=== PATIENT | male | born 1945 | race Caucasian/White ===

== ENCOUNTER 2018-04-09 19:58 | Inpatient (IN) | payer MEDICAID ==
[~2018-04-09] VITALS: Ht 170.2 cm; Wt 68.1 kg
[2018-04-09 20:45] VITALS: BP 159/85
--- NOTE | 2018-04-09 20:53 | NUR ---
OBSTETRICIAN GYNECOLOGIST SIDE SHOW ENTERTAINER AND LAB AT BEDSIDE.
[2018-04-09 20:59] LABS: BASOPHILS # (AUTO) 0.1 /CMM (0.0-0.2); BASOPHILS % (AUTO) 0.7 % (0.0-2.0); EOSINOPHILS % (AUTO) 1.7 % (0.0-6.0); HEMATOCRIT 45 % (39-51); HEMOGLOBIN 15.1 g/dL (13.5-17.5); LYMPHOCYTES # (AUTO) 3.2 /CMM (0.8-4.8); LYMPHOCYTES % (AUTO) 32.3 % (20.0-44.0); MEAN CORPUSCULAR HGB CONC 34 g/dl (31.0-36.0); MEAN CORPUSCULAR VOLUME 87 fL (80-96); MONOCYTES # (AUTO) 0.6 /CMM (0.1-1.30); NEUTROPHILS # (AUTO) 5.7 /CMM (1.8-8.9); NEUTROPHILS % (AUTO) 59.3 % (43.0-81.0); PLATELET COUNT (AUTO) 147 /CMM (150-450); RDW COEFFICIENT OF VARIATION 13.2 (11.5-15.0); RED BLOOD CELL COUNT(AUTO) 5.17 MIL/uL (4.5-6.0); WHITE BLOOD COUNT (AUTO) 9.8 K/uL (4.3-11.0)
--- NOTE | 2018-04-09 21:01 | NUR ---
ELIGIBILITY TECHNICIAN 72/M BIB AMBULANCE PER PRIMARY MD FOR EVAL OF GROWTH ON RIGHT ARM; GROWTH IS PINK/RED PROTRUING FROM LOWER ARM COVERED W/DRESSING. PT DENIES PAIN. NO SOB NOTED, ON ROOM AIR. NSR ON MONITOR. SBP 160. PT HAS RIGHT SIDED WEAKNESS FROM PREVIOUS CVA.
[2018-04-09 21:05] LABS: CALCIUM, SERUM 9.1 mg/dL (8.5-10.1); CARBON DIOXIDE 34 mmol/L (21-32); CHLORIDE 105 mmol/L (98-107); CREATININE 0.8 mg/dL (0.6-1.3); GLUCOSE 100 mg/dL (74-106); POTASSIUM 3.8 mmol/L (3.5-5.1); SODIUM SERUM 142 mmol/L (136-145); UREA NITROGEN, BLOOD 15 mg/dL (7-18)
--- NOTE | 2018-04-09 21:19 | NUR ---
DR MORFIN SPEAKING WITH DEGKEELYSE STEAMSHIP AGENT AND ACCEPTING PATIENT.
--- NOTE | 2018-04-09 21:47 | NUR ---
CALLED NURSING SUP REQUESTED MED SURG BED FOR THIS PATIENT.
--- NOTE | 2018-04-09 22:00 | NUR ---
COMPUTER TRAINING SPECIALIST PT USED URINAL; 100 ML CLEAR YELLOW URINE.
--- NOTE | 2018-04-09 22:25 | NUR ---
PLANNER/SCHEDULER INSERTED LFA 22 G. PT TOLERATED WELL.
--- NOTE | 2018-04-09 22:25 | NUR ---
CRITICAL CARE NURSE PRACTITIONER REPORT GIVEN TO RVI.
[2018-04-09] MEDS ORDERED: Z GUARD REMEDY 2 OZ OINT TP PRN (22:30)
[2018-04-09] MEDS ORDERED: ACETAMINOPHEN 325 MG TABLET PO PRN (22:30)
[2018-04-09] MEDS ORDERED: ONDANSETRON HCL/PF 4 MG/2 ML VIAL IVP PRN (22:30)
[2018-04-09] MEDS ORDERED: ZOLPIDEM TARTRATE 5 MG TABLET PO PRN (22:30)
[2018-04-09] MEDS ORDERED: MAG HYDROX/AL HYDROX/SIMETH 30 ML UDC PO PRN (22:30)
[2018-04-09] MEDS ORDERED: MAGNESIUM HYDROXIDE 30 ML UDC PO PRN (22:30)
--- NOTE | 2018-04-09 22:40 | NUR ---
RN NOTES RECEIVED PATIENT FROM ER FOR DX RIGHT FOREARM MASS. PATIENT AO TO PERSON; FORGETFUL OF DATE AND PLACE. PATIENT AWARE WHY HE IS ADMITTED. NO ACUTE DISTRESS NOTED. DENIES ANY PAIN AT THIS TIME. IV SITE PATENT, INTACT; FLUSHED. SKIN ASSESSMENT DONE. ON LOW BED WITH BILATERAL UPPER SIDE RAILS UP. CALL EWING WITHIN EASY REACH. WILL CONTINUE TO MONITOR.
[2018-04-09 22:42] VITALS: BP 159/85
[2018-04-09] MEDS: IV D5/0.45 NACL 1,000 ML IV PRN (23:29)
[2018-04-10] MEDS ORDERED: CHOL100044 PO (02:39)
[2018-04-10] MEDS ORDERED: ASPI-1152 PO (02:39)
[2018-04-10] MEDS ORDERED: ATEN50TA PO (02:39)
[2018-04-10] MEDS ORDERED: ATOR10TA PO (02:39)
[2018-04-10] MEDS ORDERED: DONE10TA11 PO (02:39)
--- NOTE | 2018-04-10 06:15 | NUR ---
RN NOTES PATIENT IN BED ASLEEP, EASILY AROUSABLE. RESPIRATIONS EVEN. NO SIGNS OF PAIN NOTED. IVF INFUSING ORDERED. NEEDS ATTENDED. SAFETY PRECAUTIONS AND COMFORT MEASURES IN PLACE. WILL GIVE REPORT TO DAY SHIFT FOR CONTINUITY OF CARE.
[2018-04-10 06:32] LABS: BASOPHILS % (AUTO) 0.3 % (0.0-2.0); EOSINOPHILS % (AUTO) 1.3 % (0.0-6.0); HEMATOCRIT 43 % (39-51); HEMOGLOBIN 14.4 g/dL (13.5-17.5); LYMPHOCYTES # (AUTO) 1.9 /CMM (0.8-4.8); LYMPHOCYTES % (AUTO) 27.9 % (20.0-44.0); MEAN CORPUSCULAR HGB CONC 33 g/dl (31.0-36.0); MEAN CORPUSCULAR VOLUME 89 fL (80-96); MONOCYTES # (AUTO) 0.5 /CMM (0.1-1.30); MONOCYTES % (AUTO) 6.6 % (2.0-12.0); NEUTROPHILS # (AUTO) 4.4 /CMM (1.8-8.9); NEUTROPHILS % (AUTO) 63.9 % (43.0-81.0); PLATELET COUNT (AUTO) 102 /CMM (150-450); RDW COEFFICIENT OF VARIATION 14.1 (11.5-15.0); RED BLOOD CELL COUNT(AUTO) 4.84 MIL/uL (4.5-6.0)
[2018-04-10 06:56] LABS: CHOLESTEROL 160 mg/dL (<200); HDL CHOLESTEROL 60 mg/dL (40-60); LDL 98 mg/dL (0-99); TRIGLYCERIDES 64 mg/dL (30-150)
[2018-04-10 07:05] LABS: ALANINE AMINOTRANSFERASE 23 U/L (12-78); ALBUMIN 3.8 g/dL (3.4-5.0); ALKALINE PHOSPHATASE 87 U/L (46-116); ASPARTATE AMINOTRANSFERASE 19 U/L (15-37); BILIRUBIN,TOTAL 0.9 mg/dL (0.2-1.0); CALCIUM, SERUM 8.6 mg/dL (8.5-10.1); CARBON DIOXIDE 32 mmol/L (21-32); CHLORIDE 105 mmol/L (98-107); CREATININE 0.6 mg/dL (0.6-1.3); GLUCOSE 103 mg/dL (74-106); MAGNESIUM 2.1 mg/dL (1.8-2.4); PHOSPHORUS 3.6 mg/dL (2.5-4.9); POTASSIUM 3.3 mmol/L (3.5-5.1); SODIUM SERUM 141 mmol/L (136-145); TOTAL PROTEIN, SERUM 6.6 g/dL (6.4-8.2); UREA NITROGEN, BLOOD 12 mg/dL (7-18)
--- NOTE | 2018-04-10 07:20 | NUR ---
MS RN INITIAL NOTES Report received at bedside. Patient received in bed, awake, and verbally responsive. Alert and oriented x1, English speaking. Complaints of pain on right arm. No SOB/labored breathing noted. Not in any type of distress. IV on left forearm noted with fluids running. Safety measures in place. Will continue to monitor and assess patient.
[2018-04-10 08:00] VITALS: BP 138/72
--- NOTE | 2018-04-10 09:07 | NUR ---
MS RN - V/S RECHECK BP 150/73 P 62 RR 18 SpO2 97% in room air
[2018-04-10 09:11] VITALS: BP 150/73
[2018-04-10] MEDS ORDERED: LIDOCAINE 1%-EPI 1:100,000 20 ML VIAL TP ONE (10:00)
[2018-04-10] MEDS: POTASSIUM CL. PREMIX PERIPHER. 50 ML IV SCH ×2 (10:39→11:39)
--- NOTE | 2018-04-10 14:40 | NUR ---
MS RN - PROCEDURE NOTES Biopsy of Right forearm mass done by Dr. Armando Ochoa and Shira Ghosh NP. Order to apply zeroform on site with gauze and cover with Kerlix.
[2018-04-10 16:00] VITALS: BP 146/70
[2018-04-10] MEDS: IV D5/0.45 NACL 1,000 ML IV PRN (16:20)
--- NOTE | 2018-04-10 19:40 | NUR ---
MS/RN NOTES RECEIVED PT. LYING IN BED, RESTING. PT. IS EASILY AROUSABLE TO NAME. AWAKE, ALERT AND ORIENTED X1-2. BREATHING EVEN AND UNLABORED ON ROOM AIR. NO SOB, RESPIRATORY DISTRESS OR COMPLAINTS OF PAIN NOTED AT THIS TIME. PT. WITH LEFT FOREARM 20 GAUGE PERIPHERAL IV PRESENT, PATENT AND INTACT ADMINISTERING TO PT. D5 1/2 NS @ 75 ML/HR. PT. WITH RIGHT FOREARM DRESSING PRESENT, CLEAN, DRY AND INTACT. BED LOCKED AND IN LOWEST POSITION, SIDE RAILS UP X2, BED ALARM ON, CALL LIGHT WITHIN REACH, WILL CONTINUE TO MONITOR.
[2018-04-10 20:00] VITALS: BP 139/69
--- NOTE | 2018-04-10 20:06 | NUR ---
MS RN CLOSING NOTES Report given. Patient remained in bed, awake and verbally responsive. Alert and oriented x2, Fijian speaking. Denies any pain. On room air with no SOB/labored breathing noted. Not in any type of distress. Afebrile. All needs anticipated and met. Kept patient clean and dry. Right forearm dressing dry/clean and intact.Turned and repositioned every two hours with offloading bony prominences. Bed in locked and lowest position with bed alarm and call light within reach.
[2018-04-10] MEDS: ATORVASTATIN 10 MG TABLET PO SCH (22:05)
[2018-04-10] MEDS: DONEPEZIL 5 MG TABLET PO SCH (22:05)
--- NOTE | 2018-04-11 | NUR ---
MS/RN NOTES PT. REFUSING TURNING AND REPOSITIONING STATING HE IS OK AND WANTS TO SLEEP. EDUCATED PT. ON IMPORTANCE OF TURNING AND REPOSITIONING Q2H AND NEEDED. PT. CONTINUES TO REFUSE. WILL CONTINUE TO MONITOR.
[2018-04-11] MEDS: IV D5/0.45 NACL 1,000 ML IV PRN ×2 (05:58→23:30)
--- NOTE | 2018-04-11 06:17 | NUR ---
MS/RN NOTES PT. IS LYING IN BED RESTING. BREATHING EVEN AND UNLABORED ON ROOM AIR. NO SOB, RESPIRATORY DISTRESS OR COMPLAINTS OF PAIN NOTED AT THIS TIME AND THROUGHOUT SHIFT. PT. WITH LEFT FOREARM 20 GAUGE PERIPHERAL IV PRESENT, PATENT AND INTACT ADMINISTERING TO PT. D5 1/2 NS @ 75 ML/HR. PT. WITH RIGHT FOREARM DRESSING PRESENT, CLEAN, DRY AND INTACT. ALL PT. NEEDS MET. BED LOCKED AND IN LOWEST POSITION, SIDE RAILS UP X2, BED ALARM ON, CALL LIGHT WITHIN REACH, WILL ENDORSE TO DAYSHIFT NURSE FOR CONTINUITY OF CARE.
[2018-04-11 07:29] LABS: CARBON DIOXIDE 28 mmol/L (21-32); CHLORIDE 108 mmol/L (98-107); CREATININE 0.6 mg/dL (0.6-1.3); GLUCOSE 114 mg/dL (74-106); POTASSIUM 4.1 mmol/L (3.5-5.1); SODIUM SERUM 144 mmol/L (136-145); UREA NITROGEN, BLOOD 10 mg/dL (7-18)
[2018-04-11 08:00] VITALS: BP 161/73
--- NOTE | 2018-04-11 08:00 | NUR ---
m/s warehouse operator: initial assessment receive pt in bed awake, alert and oriented x 1-2 with confusion and disorientation to time, place, and situation. speech mumbles at times, but able to make simple needs known; yoruba speaking only. reality orientation provided prn. will continue to monitor.
[2018-04-11] MEDS: ASPIRIN EC 81 MG TABLET.DR PO SCH (08:33)
[2018-04-11] MEDS: ATENOLOL 50 MG TABLET PO SCH (08:34)
--- NOTE | 2018-04-11 12:00 | NUR ---
m/s heidi: md visit seen and examined by hayden hussein ([facility]) at this time.
--- NOTE | 2018-04-11 14:00 | NUR ---
m/s side stitcher: plastic surgeon f/u seen by pratik (romario) and plan to do surgery to remove mass on right forearm on . cn aware. no new orders at this time. will monitor.
[2018-04-11 16:00] VITALS: BP 155/81
--- NOTE | 2018-04-11 16:00 | NUR ---
m/s pet store merchandiser: notes tx supplies at bedside. pt refused tx on right forearm wound when offered. reality orientation provided prn. instructed to call for assistance. will continue to monitor.
--- NOTE | 2018-04-11 19:10 | NUR ---
m/s flume tender: notes bedside report given to nicole (sangeetha) for continuity of care.
--- NOTE | 2018-04-11 19:15 | NUR ---
RN OPENING NOTES PT AWAKE DN RESTING IN BED. PT CONFUSED. PRIMARILY [place]EL[place] SPEAKER. NO APPARENT S/S OF PAIN DISTRESS OR SOB AT THIS TIME. PT HAS A LEFT FOREARM #20 IV RUNNING D5 1/2NS @75 ML/HR. PT TOLERATING FLUIDS WELL. PT HAS A RIGHT FOREARM DRESSING PRESENT, CLEAN, DRY AND INTACT. SAFETY PRECAUTIONS IN PLACE, BED IN LOWEST LOCKED POSITION, X2 SIDE RAILS UP, AND CALL LIGHT WITHIN REACH. WILL CONTINUE TO MONITOR.
[2018-04-11 20:15] VITALS: BP 127/62
[2018-04-11] MEDS: ATORVASTATIN 10 MG TABLET PO SCH (21:45)
[2018-04-11] MEDS: DONEPEZIL 5 MG TABLET PO SCH (21:47)
--- NOTE | 2018-04-12 06:36 | NUR ---
RN CLOSING NOTES PT AWAKE AND RESTING IN BED. PT CONFUSED. PRIMARILY AMHARIC SPEAKER. NO APPARENT S/S OF PAIN DISTRESS OR SOB OVERNIGHT. PT HAS A LEFT FOREARM #20 IV RUNNING D5 1/2NS @75 ML/HR. PT TOLERATING FLUIDS WELL. PT HAS A RIGHT FOREARM DRESSING PRESENT, CLEAN, DRY AND INTACT. SAFETY PRECAUTIONS IN PLACE, BED IN LOWEST LOCKED POSITION, X2 SIDE RAILS UP, AND CALL LIGHT WITHIN REACH. WILL ENDORSE TO DAY SHIFT NURSE FOR CONTINUITY OF CARE.
[2018-04-12 08:00] VITALS: BP 136/63
[2018-04-12] MEDS: ASPIRIN EC 81 MG TABLET.DR PO SCH (09:15)
[2018-04-12] MEDS: ATENOLOL 50 MG TABLET PO SCH (09:16)
[2018-04-12 16:00] VITALS: BP 130/60
--- NOTE | 2018-04-12 19:00 | NUR ---
MS RN OPENING NOTE RECEIVE PATIENT AWAKE IN BED, TOLERATING ROOM AIR 98%. NO SOB OR DISTRESS NOTED, CALL LIGHT WITHIN REACH. SAFETY MEASURES IMPLEMENTED. WILL CONTINUE TO MONITOR THROUGHOUT SHIFT.
[2018-04-12 20:00] VITALS: BP 135/70
[2018-04-12] MEDS: DONEPEZIL 5 MG TABLET PO SCH (21:01)
[2018-04-12] MEDS: ATORVASTATIN 10 MG TABLET PO SCH (21:01)
[2018-04-12] MEDS: IV D5/0.45 NACL 1,000 ML IV PRN ×2 (21:02→21:21)
--- NOTE | 2018-04-12 23:23 | NUR ---
MS RN NOTES SPOKE TO (JOHNNIE) WITH 1 RN WITNESS TRANSLATED CANADIAN EXPLAINED SURGERY PROCEDURES TO BE DONE TOMORROW. AGREED AND CONSENTED THE PROCEDURE.
--- NOTE | 2018-04-13 06:28 | NUR ---
MS RN CLOSING NOTES ASLEEP AND EASILY AWAKEN, STABLE, NOT IN DISTRESS. TOLERATING ROOM AIR 98%, RESPIRATION EVEN AND UNLABORED. KEPT CLEAN AND DRY AND COMFORTABLE, ALL NURSING CARE RENDERED. NEEDS ATTENDED AND ANTICIPATED. GOOD SKIN CARE PROVIDED. NO COMPLAIN OF PAIN AT THIS TIME. OFFLOAD HEELS AND ELBOWS. ON LOW BED AT ALL TIMES TO ENSURE SAFETY. SAFE HAZARD FREE ENVIRONMENT PROVIDED. CALL LIGHT WITHIN EASY TO REACH. WILL ENDORSE NEXT SHIFT CONTINUITY OF CARE.
[2018-04-13 06:58] LABS: CALCIUM, SERUM 8.9 mg/dL (8.5-10.1); CARBON DIOXIDE 29 mmol/L (21-32); CHLORIDE 106 mmol/L (98-107); CREATININE 0.8 mg/dL (0.6-1.3); GLUCOSE 103 mg/dL (74-106); POTASSIUM 3.9 mmol/L (3.5-5.1); SODIUM SERUM 142 mmol/L (136-145); UREA NITROGEN, BLOOD 13 mg/dL (7-18)
[2018-04-13 07:14] LABS: BASOPHILS % (AUTO) 0.4 % (0.0-2.0); EOSINOPHILS % (AUTO) 1.7 % (0.0-6.0); HEMATOCRIT 44 % (39-51); HEMOGLOBIN 14.8 g/dL (13.5-17.5); LYMPHOCYTES # (AUTO) 2.5 /CMM (0.8-4.8); LYMPHOCYTES % (AUTO) 27.1 % (20.0-44.0); MEAN CORPUSCULAR HGB CONC 34 g/dl (31.0-36.0); MEAN CORPUSCULAR VOLUME 90 fL (80-96); MONOCYTES # (AUTO) 0.4 /CMM (0.1-1.30); MONOCYTES % (AUTO) 4.9 % (2.0-12.0); NEUTROPHILS % (AUTO) 65.9 % (43.0-81.0); PLATELET COUNT (AUTO) 112 /CMM (150-450); RED BLOOD CELL COUNT(AUTO) 4.92 MIL/uL (4.5-6.0); WHITE BLOOD COUNT (AUTO) 9.1 K/uL (4.3-11.0)
--- NOTE | 2018-04-13 07:53 | NUR ---
MS RN OPENING NOTES RECEIVED PT FROM NIGHTSMIFT NURSE IN STABLE CONDITION. PT IS A/O X3. NO SOB OR ACUTE SIGNS OF DISTRESS NOTED. RESPIRATIONS EVEN AND UNLABORED. PT ON RA AND SATING WELL. HE DENIES PAIN AT THIS TIME. NPO STATUS MAINTAINED PT IS SCHEDULED FOR REMOVAL OF THE RIGHT FA MASS AT AROUND 1100. PT NOTIFIED OF TIME OF PROCEDURE AND EDUCATED ON THE IMPORTANCE OF REMAINING NPO. HE VERBALIZED FULL UNDERSTANDING. IV TO LEFT FA NOTED TO BE PATENT AND INTACT. NO REDNESS OR SIGNS OF INFILTRATION NOTED. PT TOLERATING IV INFUSION WELL. BED IN LOW LOCKED POSITION, SIDE RAILS UP X2, CALL LIGHT WITHIN PT'S REACH. WILL CONTINUE TO MONITOR
[2018-04-13 08:18] VITALS: BP 106/73
[2018-04-13] MEDS: ATENOLOL 50 MG TABLET PO SCH (09:00)
[2018-04-13] MEDS: ASPIRIN EC 81 MG TABLET.DR PO SCH (09:00)
--- NOTE | 2018-04-13 11:30 | NUR ---
Pt taken down to OR in stable condition
[2018-04-13] MEDS ORDERED: MINERAL OIL 10 ML VIAL MC ONE (12:25)
[2018-04-13] MEDS ORDERED: BUPIVACAINE MPF 0.5% W/EPI INJ 30 ML VIAL ONE (12:25)
[2018-04-13] MEDS ORDERED: LIDOCAINE 1% INJ 50 ML MDV IJ ONE (12:25)
--- NOTE | 2018-04-13 13:56 | NUR ---
MS RN NOTES: POST OP RECEIVED PT FROM OR NURSE IN STABLE CONDITION. VSS. NO COMPLAINTS OF PAIN AT THIS TIME. SURGICAL DRESSINGS NOTED TO BE CLEAN, DRY, AND INTACT. SKIN GRAFT SITE (RIGHT UPPER THIGH) NOTED TO BE BE WRAPPED IN ASHLY BANDAGE. ORDERS NOTED FROM MD TO RESUME PREOP ORDERS. WILL RESUME DIET AND CONTINUE TO MONITOR
[2018-04-13 16:23] VITALS: BP 146/74
[2018-04-13] MEDS: IV D5/0.45 NACL 1,000 ML IV PRN (17:14)
--- NOTE | 2018-04-13 18:29 | NUR ---
MS RN CLOSING NOTES PT REMAINS STABLE. ALL NEEDS WERE MET DURING SHIFT AND ORDERS CARRIED OUT ACCORDINGLY ALL DUE MEDS GIVEN. VITALS STABLE POST PROCEDURE. SURGICAL DRESSINGS REMAIN CLEAN, DRY, AND INTACT. PT DENIES PAIN AT THIS TIME. IV REMAINS PATENT AND INTACT. PT CONTINUES TO TOLERATE IV INFUSION WELL. SAFETY MEASURES REMAIN IN PLACE. WILL ENDORSE TO NIGHTSHIFT NURSE FOR PRAVEEN
--- NOTE | 2018-04-13 19:27 | NUR ---
RN OPENING NOTES PT ASLEEP IN BED COMFORTABLY. PT IN ROOM AIR, TOLERATING WELL, NO SIGNS OF DISTRESS, NO LABORED BREATHING. IV ACCESS ON THE LEFT FOREARM 20G PATENT AND INTACT. DRESSING ON RIGHT FOREARM AND RIGHT LEG IS DRY AND INTACT, NO SIGNS OF SWELLING, NO BLEEDING. PT DOES NOT SHOW ANY SIGNS OF PAIN. SAFETY MEASURES IN PLACED, CALL LIGHT WITHIN REACH. WILL CONTINUE TO MONITOR AND ASSESS PATIENT.
[2018-04-13 19:30] VITALS: BP 114/68
[2018-04-13 20:00] VITALS: BP 114/68
[2018-04-13] MEDS: ATORVASTATIN 10 MG TABLET PO SCH (21:29)
[2018-04-13] MEDS: DONEPEZIL 5 MG TABLET PO SCH (21:29)
[2018-04-13] MEDS: HYDROCODONE/APAP 5/325MG 1 EACH TABLET PO PRN (21:29)
[2018-04-14] MEDS: HYDROCODONE/APAP 5/325MG 1 EACH TABLET PO PRN (05:31)
--- NOTE | 2018-04-14 06:54 | NUR ---
RN CLOSING NOTES PT LAYING IN BED, EASILY AROUSED. PT IN ROOM AIR, TOLERATING WELL, NO SIGNS OF DISTRESS, NO LABORED BREATHING. IV ACCESS ON THE LEFT FOREARM 20G PATENT AND INTACT. DRESSING ON RIGHT FOREARM AND RIGHT LEG IS DRY AND INTACT, NO SIGNS OF SWELLING, NO BLEEDING. PT COMPLAINED OF PAIN, GIVEN PAIN RELIEF MED, PT STATES IT'S EFFECTIVE. SAFETY MEASURES IN PLACED, CALL LIGHT WITHIN REACH. WILL ENDORSE CONTINUITY OF CARE TO THE ONCOMING RN
[2018-04-14 08:18] VITALS: BP 148/84
[2018-04-14] MEDS: ASPIRIN EC 81 MG TABLET.DR PO SCH (08:28)
[2018-04-14] MEDS: ATENOLOL 50 MG TABLET PO SCH (08:29)
[2018-04-14] MEDS ORDERED: CHOLECALCIFEROL 1,000 UNIT TABLET (VIT D3) PO SCH (11:32)
[2018-04-14 15:56] VITALS: BP 159/94
--- NOTE | 2018-04-14 17:18 | NUR ---
MS RN OPENING NOTES RECEIVED PT FROM NIGHTSHIFT NURSE IN STABLE CONDITION. PT IS A/O X3. NO SOB OR ACUTE SIGNS OF DISTRESS NOTED. RESPIRATIONS EVEN AND UNLABORED. PT ON RA AND SATING WELL. HE DENIES PAIN AT THIS TIME. SURGICAL DRESSINGS NOTED TO BE CLEAN, DRY, AND INTACT. IV TO LEFT FA NOTED TO BE PATENT AND INTACT. NO REDNESS OR SIGNS OF INFILTRATION NOTED. PT TOLERATING IV INFUSION WELL. BED IN LOW LOCKED POSITION, SIDE RAILS UP X2, CALL LIGHT WITHIN PT'S REACH. WILL CONTINUE TO MONITOR
--- NOTE | 2018-04-14 17:20 | NUR ---
MS WHEEL ALIGNER NOTES PT WAS DISCHARGED FROM FACILITY IN STABLE CONDITION. ALL NEEDS WERE MET DURING SHIFT AND ORDERS CARRIED OUT ACCORDINGLY. ALL DUE MEDS GIVEN. WOUND CARE PROVIDED BY MD PRIOR TO D/C. D/C PHOTOS TAKEN AND PLACED IN PT'S CHART. REPORT CALLED AND GIVEN TO ROSALINA THE NURSING INSTITUTIONAL RESEARCH COORDINATOR AT [facility]. ROSALINA MADE AWARE OF TX ORDERS AND CARE FOR SURGICAL SITES. RN ALSO MADE AWARE OF ABX PRESCRIPTION. IV WAS SUCCESSFULLY REMOVED WITH NO COMPLICATIONS. D/C PAPERWORK SIGNED BY 2 RNS PT IS UNABLE TO SIGN. PT MADE AWARE OF DC INSTRUCTIONS. HE WAS SAFELY TRANSFERRED FROM [facility] TO [facility] AND LEFT VIA AMBULANCE TRANSPORT WITH ALL BELONGINGS
== END 2018-04-14 16:20 | DRG 364 ==
LOC: ER 20:03 → MED 21:59
PROVIDERS: ADMIT Internal Medicine; ATTEND Internal Medicine
PROC: 0HBBXZX Excision of Right Upper Arm Skin, External Approach, Diagnostic (ICD-10-PCS; principal; 2018-04-10)
PROC: 0JBG0ZX Excision of Right Lower Arm Subcutaneous Tissue and Fascia, Open Approach, Diagnostic (ICD-10-PCS; principal; 2018-04-10)
PROC: 0JRG07Z Replacement of Right Lower Arm Subcutaneous Tissue and Fascia with Autologous Tissue Substitute, Open Approach (ICD-10-PCS; 2018-04-13)
PROC: 0JBL0ZZ Excision of Right Upper Leg Subcutaneous Tissue and Fascia, Open Approach (ICD-10-PCS; 2018-04-13)
DX: C44.612 Basal cell carcinoma of skin of right upper limb, including shoulder (principal); I69.351 Hemiplegia and hemiparesis following cerebral infarction affecting right dominant side; F03.90 Unspecified dementia, unspecified severity, without behavioral disturbance, psychotic disturbance, mood disturbance, and anxiety; L02.413 Cutaneous abscess of right upper limb; E87.6 Hypokalemia; I10 Essential (primary) hypertension
CPT/HCPCS: 36415; 71045-TC; 80048-TC; 80053-TC; 80061-TC; 83735-TC; 84100-TC; 85025-TC; 85730-TC; 87081-TC; 88305-TC; A4606; A6253; A6402; J0690; J3480; J3490; J7030; Z7610

== ENCOUNTER 2019-01-07 10:30 | Inpatient (IN) | payer MEDICAID ==
[~2019-01-07] VITALS: Ht 170.2 cm; Wt 73.5 kg
[~2019-01-07 10:30] MED LIST: ASPI-1152 PO; ATEN50TA PO; ATOR10TA PO; CHOL100044 PO; DONE10TA11 PO
--- NOTE | 2019-01-07 10:30 | NUR ---
PT BIBRA FROM SNF FOR WORSENING CELLULITIS; PT AAOX4, -SOB, NAD NOTED, VSS, PENDING MD HERNANDEZ
[2019-01-07 10:59] LABS: BASOPHILS # (AUTO) 0.1 /CMM (0.0-0.2); BASOPHILS % (AUTO) 0.6 % (0.0-2.0); EOSINOPHILS % (AUTO) 0.1 % (0.0-6.0); HEMATOCRIT 40 % (39-51); HEMOGLOBIN 13.6 g/dL (13.5-17.5); LYMPHOCYTES # (AUTO) 1.5 /CMM (0.8-4.8); LYMPHOCYTES % (AUTO) 9.3 % (20.0-44.0); MEAN CORPUSCULAR HGB CONC 34 g/dl (31.0-36.0); MEAN CORPUSCULAR VOLUME 88 fL (80-96); MONOCYTES # (AUTO) 1.2 /CMM (0.1-1.30); MONOCYTES % (AUTO) 7.4 % (2.0-12.0); NEUTROPHILS # (AUTO) 13.3 /CMM (1.8-8.9); NEUTROPHILS % (AUTO) 82.6 % (43.0-81.0); PLATELET COUNT (AUTO) 137 /CMM (150-450); RED BLOOD CELL COUNT(AUTO) 4.57 MIL/uL (4.5-6.0); WHITE BLOOD COUNT (AUTO) 16.1 K/uL (4.3-11.0)
[2019-01-07] MEDS ORDERED: VANCOMYCIN 1 GM in IV D5W 250 ML IV ONE (11:00)
[2019-01-07] MEDS ORDERED: TYL2T PO (11:06)
[2019-01-07] MEDS ORDERED: CEPH-570 PO (11:06)
[2019-01-07 11:07] LABS: CALCIUM, SERUM 8.6 mg/dL (8.5-10.1); CARBON DIOXIDE 30 mmol/L (21-32); CHLORIDE 104 mmol/L (98-107); CREATININE 0.7 mg/dL (0.6-1.3); GLUCOSE 114 mg/dL (74-106); POTASSIUM 3.7 mmol/L (3.5-5.1); SODIUM SERUM 140 mmol/L (136-145); UREA NITROGEN, BLOOD 23 mg/dL (7-18)
[2019-01-07 11:21] LABS: ALANINE AMINOTRANSFERASE 32 U/L (12-78); ALBUMIN 3.3 g/dL (3.4-5.0); ALKALINE PHOSPHATASE 89 U/L (46-116); ASPARTATE AMINOTRANSFERASE 54 U/L (15-37); BILIRUBIN,DIRECT 0.1 mg/dL (0.0-0.2); BILIRUBIN,TOTAL 0.6 mg/dL (0.2-1.0)
--- NOTE | 2019-01-07 11:56 | NUR ---
INITIAL FINDINGS OF DUPLEX VENOUS UPPER EXT RIGHT TEST SHOWED POSITIVE FOR THROMBUS AT BRACHIAL VEIN. ADVISED DR. LIZAMA AND LILA WHITE) OF PRELIM RESULTS.
--- NOTE | 2019-01-07 11:59 | NUR ---
CALLED [facility]. RESIDENTIAL LEASING AGENT WAS PAGED
--- NOTE | 2019-01-07 12:08 | NUR ---
CALLED HOUSE SUP FOR TELE BED
[2019-01-07] MEDS ORDERED: ONDANSETRON HCL/PF 4 MG/2 ML VIAL IVP PRN (12:30)
[2019-01-07] MEDS ORDERED: ACETAMINOPHEN 325 MG TABLET PO PRN (12:30)
--- NOTE | 2019-01-07 12:34 | NUR ---
[id number] BED GIVEN MILKA RN
--- NOTE | 2019-01-07 12:37 | NUR ---
REPORT GIVEN TO MILKA RN FOR PRAVEEN; PT WILL BE TRANSPORTED TO 3RD FLOOR
[2019-01-07 13:00] VITALS: BP 148/95
[2019-01-07 13:02] LABS: APPEARANCE,URINE Clear (CLEAR); BILIRUBIN,URINE Negative (NEGATIVE); BLOOD, URINE Trace-intact Ery/uL (NEGATIVE); COLOR,URINE Yellow (YELLOW); KETONES,URINE Negative (NEGATIVE); LEUKOCYTE ESTERASE ,URINE Negative (NEGATIVE); NITRITE, URINE Negative (NEGATIVE); PROTEIN,URINE Trace mg/dl (NEGATIVE); UGLUCOSE Negative (NEGATIVE)
[2019-01-07 13:04] LABS: BACTERIA,URINE Few /HPF (None Seen); RBC,URINE 0-2 /HPF (0-2); WBC,URINE 0-2 /HPF (0-3)
[2019-01-07 13:05] LABS: SQUAMOUS EPITHELIAL CELL,UR Few /HPF (None Seen)
[2019-01-07] MEDS: IV NS 0.9% 1,000 ML IV SCH (13:07)
[2019-01-07] MEDS ORDERED: FEE PK DOSING 1 MIN EA MC ONE (13:09)
--- NOTE | 2019-01-07 13:44 | NUR ---
SOCKET PULLER NOTES Patient received on room air, no sob noted. Vital signs stable. Patient has right cellulitis and has photo taken with patients consent. It is now in the chart. Patient speaks mainly occitan. A/O X4, patient has right lower extremity weakness. Positive for DVT, Dr. Hahn aware. Bed at the lowest setting, call light within reach.
[2019-01-07] MEDS: FAMOTIDINE/PF INJ 20 MG/2 ML VIAL IV SCH (13:55)
[2019-01-07] MEDS: ENOXAPARIN SODIUM 80 MG/0.8 ML DISP.SYRIN SQ SCH (13:56)
[2019-01-07 16:00] VITALS: BP 139/66
[2019-01-07] MEDS ORDERED: RIVAROXABAN 10 MG TABLET PO SCH (17:00)
[2019-01-07] MEDS: CEFTRIAXONE 1 G in IV D5W 50 ML IV SCH (18:27)
[2019-01-07 20:51] VITALS: BP 113/51
[2019-01-07] MEDS: DONEPEZIL 5 MG TABLET PO SCH (21:09)
[2019-01-07] MEDS: ATORVASTATIN 10 MG TABLET PO SCH (21:09)
[2019-01-07] MEDS: ACETAMINOPHEN 325 MG TABLET PO PRN (21:17)
--- NOTE | 2019-01-07 23:00 | NUR ---
TELE MACHINE PLATE STACKER INITIAL NOTES RECEIVED REPORT FROM ANOTHER NURSE FOR CONTINUITY OF CARE. AND SEEN PT IN BED SLEEPING COMFORTABLY IN BED WITHOUT ANY DISTRESS NOTED. BREATHING EVEN AND NON-LABORED. IVF NS AT 75ML/HR INFUSING AT THIS TIME. TELE SINUS RHYTHM PER MONITOR. KEPT HIM WARM AND COMFORTABLE AT ALL TIMES. PLACE CALL LIGHT AT REACH. WILL CONTINUE MONITORING.
[2019-01-08 00:24] VITALS: BP 115/53
[2019-01-08] MEDS: VANCOMYCIN 1 GM in IV D5W 250 ML IV SCH ×2 (00:37→12:18)
--- NOTE | 2019-01-08 01:42 | NUR ---
MS RADHA NOTES PT REMAINS ASLEEP , NO SIGNS OF ANY DISTRESS NOTED. KEPT HIM WARM AND COMFORTABLE AT ALL TIMES. PLACE CALL LIGHT AT REACH..
[2019-01-08] MEDS: IV NS 0.9% 1,000 ML IV SCH ×2 (02:07→16:36)
[2019-01-08] MEDS: ENOXAPARIN SODIUM 80 MG/0.8 ML DISP.SYRIN SQ SCH ×2 (02:09→14:08)
[2019-01-08 04:00] VITALS: BP 136/65
[2019-01-08] MEDS: ACETAMINOPHEN 325 MG TABLET PO PRN ×2 (05:59→22:05)
--- NOTE | 2019-01-08 05:59 | NUR ---
tele tactical deception plans officer notes morning care done with the helped of manpreet roberson then skin treatment also done , z-guard applied to buttocks area and his bilateral heels. mepilex also applied because pt refused to have heels offload. right arm elevated on pillows , noted swollen and redness specially the inner lateral side. Tylenol po given as ordered for his mild pain. kept him comfortable at all times, place call light at reach.
[2019-01-08] MEDS ORDERED: ERGOCALCIFEROL (VITAMIN D 2) 50,000 UNIT CAPSULE PO SCH (06:30)
[2019-01-08 06:33] LABS: ALANINE AMINOTRANSFERASE 29 U/L (12-78); ALBUMIN 2.9 g/dL (3.4-5.0); ALKALINE PHOSPHATASE 73 U/L (46-116); ASPARTATE AMINOTRANSFERASE 44 U/L (15-37); CARBON DIOXIDE 27 mmol/L (21-32); CHLORIDE 105 mmol/L (98-107); CREATININE 0.7 mg/dL (0.6-1.3); GLUCOSE 109 mg/dL (74-106); MAGNESIUM 1.9 mg/dL (1.8-2.4); PHOSPHORUS 2.4 mg/dL (2.5-4.9); POTASSIUM 3.6 mmol/L (3.5-5.1); SODIUM SERUM 142 mmol/L (136-145); TOTAL PROTEIN, SERUM 6.3 g/dL (6.4-8.2); UREA NITROGEN, BLOOD 9 mg/dL (7-18)
[2019-01-08 06:43] LABS: CHOLESTEROL 131 mg/dL (<200); HDL CHOLESTEROL 40 mg/dL (40-60); LDL 70 mg/dL (0-99); THYROID STIMULATING HORMONE 1.166 uIU/mL (0.358-3.74); TRIGLYCERIDES 92 mg/dL (30-150)
--- NOTE | 2019-01-08 06:51 | NUR ---
tele medical transcriptionist closing notes pt seen in bed awake and alert watching tv , he stated feel better but on and off , encourage him as much as possible to always elevated on pillows then pt smile. kept him comfortable at all times. IVF NS at 75ml.hr still infusing on his left forearm and pt still refusing to offload bilateral heels. stable and slept well. No signs of any distress noted. kept him on semi fowlers position with side rails x2 and bed alarm set for safety. bed in low and lock in position. will endorse to am nurse for continuity of care. place call light at reach.
[2019-01-08 07:20] LABS: BASOPHILS # (AUTO) 0.1 /CMM (0.0-0.2); BASOPHILS % (AUTO) 0.5 % (0.0-2.0); EOSINOPHILS % (AUTO) 0.3 % (0.0-6.0); HEMATOCRIT 40 % (39-51); HEMOGLOBIN 13.3 g/dL (13.5-17.5); LYMPHOCYTES # (AUTO) 1.6 /CMM (0.8-4.8); LYMPHOCYTES % (AUTO) 13.5 % (20.0-44.0); MEAN CORPUSCULAR HGB CONC 34 g/dl (31.0-36.0); MEAN CORPUSCULAR VOLUME 87 fL (80-96); MONOCYTES # (AUTO) 0.9 /CMM (0.1-1.30); MONOCYTES % (AUTO) 7.6 % (2.0-12.0); NEUTROPHILS # (AUTO) 9.1 /CMM (1.8-8.9); NEUTROPHILS % (AUTO) 78.1 % (43.0-81.0); PLATELET COUNT (AUTO) 133 /CMM (150-450); RED BLOOD CELL COUNT(AUTO) 4.53 MIL/uL (4.5-6.0); WHITE BLOOD COUNT (AUTO) 11.6 K/uL (4.3-11.0)
--- NOTE | 2019-01-08 07:30 | NUR ---
m/s machine operator: initial assessment received pt in bed awake, a/ox2-3; south sudanese speaking only. right arm remains swelling with redness. elevate affected arm with pillow. voiced no discomfort. instructed to call for assistance. will continue to monitor.
[2019-01-08 08:00] VITALS: BP 139/77
[2019-01-08] MEDS: ATENOLOL 50 MG TABLET PO SCH (08:31)
[2019-01-08] MEDS: ASPIRIN EC 81 MG TABLET.DR PO SCH (08:31)
[2019-01-08] MEDS: FAMOTIDINE/PF INJ 20 MG/2 ML VIAL IV SCH (08:55)
[2019-01-08] MEDS ORDERED: PANTOPRAZOLE 40 MG VIAL IV SCH (09:00)
--- NOTE | 2019-01-08 11:30 | NUR ---
M/S COMPUTER SERVICE TECHNICIAN: PLASTIC SURGEON CONSULT SEEN BY WALTER Harper) AT THIS TIME.
--- NOTE | 2019-01-08 11:40 | NUR ---
WOUND CARE CONSULT: PT PRESENTS WITH VERY RED SWOLLEN AND PAINFUL RT ARM WITH BLACK DISCOLORATION, PRESENT ON ADMISSION. LEFT ARM IN SPLINT. RECOMMEND SURGICAL CONSULT. DR BROWN NOTIFIED OF CONSULT REQUEST. RECOMMENDATIONS MADE FOR SKIN PROTECTION. DISCUSSED WITH NURSING STAFF. MD IN AGREEMENT WITH PLAN OF CARE.
[2019-01-08] MEDS ORDERED: Z GUARD REMEDY 2 OZ OINT TP PRN (12:00)
[2019-01-08] MEDS ORDERED: K PHOS NEUTRAL 250 MG TABLET PO ONE (13:30)
[2019-01-08] MEDS: Z GUARD REMEDY 2 OZ OINT TP SCH (14:05)
--- NOTE | 2019-01-08 14:30 | NUR ---
M/S VERIFICATION MANAGER: DPM CONSULT SEEN AND EXAMINED BY KEL CHOW DPM WITH TX ORDER. ORDER ACKNOWLEDGED.
[2019-01-08 16:00] VITALS: BP 148/71
--- NOTE | 2019-01-08 16:00 | NUR ---
m/s database tester: notes pt watching tv at this time. pt keeps removing his pillow to right arm, encouraged and assisted pt to elevate right arm with pillow. instructed to call for assistance. will continue to monitor.
[2019-01-08] MEDS: CEFTRIAXONE 1 G in IV D5W 50 ML IV SCH (16:41)
[2019-01-08] MEDS: LACTOBACILLUS RHAMNOSUS GG 1 EACH CAP.SPRINK PO SCH (16:43)
--- NOTE | 2019-01-08 18:41 | NUR ---
m/s mirror installer: notes pt sounds asleep at this time. needs attended. call light within reach. will continue to monitor.
--- NOTE | 2019-01-08 19:00 | NUR ---
m/s lead applications developer: notes report given to ho (sangeetha) for continuity of care.
--- NOTE | 2019-01-08 19:30 | NUR ---
MSRN FULLY AWAKE, YAKUT SPEAKING. HAVE HOB ELEVATED 30 DEGREES. NO SOB, RIGHT SIDED WEAKNESS FROM PREVIOUS CVA. RIGHT ARM WITH MEPILEX, ARM SWOLLEN, ELEVATED ON PILLOWS. REPOSITIONED, KEPT COMFORTABLE. CLOSELY WATCHED.
[2019-01-08 20:00] VITALS: BP 137/65
[2019-01-08] MEDS: ATORVASTATIN 10 MG TABLET PO SCH (22:04)
[2019-01-08] MEDS: DONEPEZIL 5 MG TABLET PO SCH (22:04)
--- NOTE | 2019-01-08 22:10 | NUR ---
MSRN EASILY AWAKENED WHEN CALLED. DUE MEDS ADMINISTERED WITH PUDDING. REFUSED TO DRINK FLUIDS. REPOSITIONED, KEPT COMFORTABLE. TYLENOL 650 MG GIVEN FOR RIGHT ARM PAIN. HAVE AFFECTED ARM ELEVATED ON PILLOWS. MEPILEX INTACT.
[2019-01-09] MEDS: VANCOMYCIN 1 GM in IV D5W 250 ML IV SCH ×2 (00:41→13:03)
[2019-01-09] MEDS: ENOXAPARIN SODIUM 80 MG/0.8 ML DISP.SYRIN SQ SCH ×2 (02:54→14:51)
--- NOTE | 2019-01-09 06:45 | NUR ---
MSRN REMAINS UNCHANGED. LEFT ARM KEPT ELEVATED.
[2019-01-09 07:16] LABS: BASOPHILS % (AUTO) 0.6 % (0.0-2.0); HEMATOCRIT 39 % (39-51); HEMOGLOBIN 13.2 g/dL (13.5-17.5); LYMPHOCYTES # (AUTO) 1.6 /CMM (0.8-4.8); MEAN CORPUSCULAR HGB CONC 34 g/dl (31.0-36.0); MEAN CORPUSCULAR VOLUME 87 fL (80-96); MONOCYTES # (AUTO) 0.7 /CMM (0.1-1.30); MONOCYTES % (AUTO) 7.8 % (2.0-12.0); NEUTROPHILS # (AUTO) 6.2 /CMM (1.8-8.9); NEUTROPHILS % (AUTO) 71.6 % (43.0-81.0); PLATELET COUNT (AUTO) 142 /CMM (150-450); RED BLOOD CELL COUNT(AUTO) 4.45 MIL/uL (4.5-6.0); WHITE BLOOD COUNT (AUTO) 8.7 K/uL (4.3-11.0)
[2019-01-09 07:33] LABS: CARBON DIOXIDE 27 mmol/L (21-32); CHLORIDE 105 mmol/L (98-107); CREATININE 0.6 mg/dL (0.6-1.3); GLUCOSE 107 mg/dL (74-106); PHOSPHORUS 2.9 mg/dL (2.5-4.9); POTASSIUM 3.4 mmol/L (3.5-5.1); SODIUM SERUM 140 mmol/L (136-145); UREA NITROGEN, BLOOD 6 mg/dL (7-18)
[2019-01-09 08:00] VITALS: BP 149/70
--- NOTE | 2019-01-09 08:00 | NUR ---
m/s veterinary virus serum inspector: initial assessment received pt in bed awake, a/ox2-3; cymro speaking only. right arm dressing in place with no drainage/discharge noted. elevate affected arm with pillow. voiced no discomfort. instructed to call for assistance. will continue to monitor.
[2019-01-09] MEDS: IV NS 0.9% 1,000 ML IV SCH (08:07)
[2019-01-09] MEDS: LACTOBACILLUS RHAMNOSUS GG 1 EACH CAP.SPRINK PO SCH ×2 (08:10→16:58)
[2019-01-09] MEDS: ATENOLOL 50 MG TABLET PO SCH (08:11)
[2019-01-09] MEDS: Z GUARD REMEDY 2 OZ OINT TP SCH (08:11)
[2019-01-09] MEDS: ASPIRIN EC 81 MG TABLET.DR PO SCH (08:11)
[2019-01-09] MEDS: FAMOTIDINE/PF INJ 20 MG/2 ML VIAL IV SCH (08:16)
--- NOTE | 2019-01-09 10:00 | NUR ---
m/s chute loader: md visit seen by dr. mcdaniel.
[2019-01-09] MEDS ORDERED: POTASSIUM CHLORIDE 20 MEQ TAB.PRT.SR PO SCH (11:00)
--- NOTE | 2019-01-09 12:00 | NUR ---
m/s machine operator assistant: notes lunch served with hob elevated. instructed to call for assistance.
--- NOTE | 2019-01-09 13:30 | NUR ---
m/s home care liaison: plastic surgeon f/u raza (p.a.) at bedside and tx done to right arm wound and wound culture collected prior and with tx order change. order carried out and acknowledged. called lab to picker / packer the specimen in ref.
[2019-01-09 16:00] VITALS: BP 135/66
--- NOTE | 2019-01-09 16:00 | NUR ---
m/s bone drier: notes resting comfortable in bed. no distress noted.
[2019-01-09] MEDS: CEFTRIAXONE 1 G in IV D5W 50 ML IV SCH (16:52)
--- NOTE | 2019-01-09 18:00 | NUR ---
m/s evp global product leadership: notes dinner served. hob elevated. instructed to call for assistance.
--- NOTE | 2019-01-09 19:10 | NUR ---
m/s formulation scientist: notes report given to oh (sangeetha) for continuity of care.
--- NOTE | 2019-01-09 19:30 | NUR ---
MSRN FULLY AWAKE, RESTING QUIETLY REFUSED TO BE REPOSITIONED. HAVE RIGHT ARM ELEVATED ON 3 PILLOWS. ARM SWOLLEN, DRESSING D/I. REMINDED TO KEEP DRESSING IN PLACE, TRANSLATED IN VINCENTIAN. KEPT COMFORTABLE. TO CONTINUE
[2019-01-09 20:06] VITALS: BP 132/63
[2019-01-09] MEDS: ACETAMINOPHEN 325 MG TABLET PO PRN (21:06)
[2019-01-09] MEDS: DONEPEZIL 5 MG TABLET PO SCH (21:06)
[2019-01-09] MEDS: ATORVASTATIN 10 MG TABLET PO SCH (21:06)
--- NOTE | 2019-01-09 22:56 | NUR ---
[place] RESISTIVE TO HS CARE. AGREED TO TAKE HIS MEDS, ASSISTED PUDDING WITH MEDS. RIGHT ARM PAINFUL WHEN TOUCHED. REPOSITIONED.
[2019-01-09] MEDS: IV NS 0.9% 1,000 ML IV PRN (23:47)
[2019-01-09] MEDS: VANCOMYCIN 1.25 GM in IV D5W 500 ML IV SCH (23:51)
[2019-01-10] MEDS: ENOXAPARIN SODIUM 80 MG/0.8 ML DISP.SYRIN SQ SCH ×3 (01:28→21:43)
--- NOTE | 2019-01-10 01:58 | NUR ---
MSRN EARLY AM CARE DONE, AGREED TO BE CHANGED. LARGE URINE OUTPUT. RIGHT ARM DRESSING CHANGED DIRECTED.
[2019-01-10] MEDS: ACETAMINOPHEN 325 MG TABLET PO PRN ×2 (02:22→08:30)
--- NOTE | 2019-01-10 02:23 | NUR ---
ms heidi notes c/o pain on his right arm , tylenol given po as ordered.
--- NOTE | 2019-01-10 06:48 | NUR ---
MSRN HAD LARGE BM. PARTIAL BATHED. IVF CONTINUED. REPOSITIONED. ARM DRESSING D/I. KEPT ELEVATED ON PILLOWS
--- NOTE | 2019-01-10 07:25 | NUR ---
MS/RN OPENING NOTE THE PATIENT IS RECEIVED IN BED. AWAKE, ALERT AND ORIENTED X3 AND SPEAKS YAKUT. IN ROOM AIR AND DENIES SOB. RESPIRATION REGULAR AND UNLABORED. DENIES PAIN. THE PATIENT IN NO APPARENT DISTRESS. RIGHT ARM DRESSING INTACT. NO STRIKE THRUE NOTED. LFA G 18 PATENT AND NORMAL SALINE INFUSING AT 75ML/HR AND NO S/S INFILTRATION NOTED. BED LOW AND LOCKED. SIDE RAILS UP X3. CALL LIGHT WITHIN REACH. WILL CONTINUE TO MONITOR.
[2019-01-10 07:54] LABS: BASOPHILS # (AUTO) 0.1 /CMM (0.0-0.2); BASOPHILS % (AUTO) 0.7 % (0.0-2.0); EOSINOPHILS % (AUTO) 2.2 % (0.0-6.0); HEMATOCRIT 38 % (39-51); HEMOGLOBIN 13.1 g/dL (13.5-17.5); LYMPHOCYTES # (AUTO) 2.2 /CMM (0.8-4.8); LYMPHOCYTES % (AUTO) 25.2 % (20.0-44.0); MEAN CORPUSCULAR HGB CONC 34 g/dl (31.0-36.0); MEAN CORPUSCULAR VOLUME 86 fL (80-96); MONOCYTES # (AUTO) 0.6 /CMM (0.1-1.30); MONOCYTES % (AUTO) 7.4 % (2.0-12.0); NEUTROPHILS # (AUTO) 5.6 /CMM (1.8-8.9); NEUTROPHILS % (AUTO) 64.5 % (43.0-81.0); PLATELET COUNT (AUTO) 173 /CMM (150-450); RED BLOOD CELL COUNT(AUTO) 4.39 MIL/uL (4.5-6.0); WHITE BLOOD COUNT (AUTO) 8.7 K/uL (4.3-11.0)
[2019-01-10 08:00] VITALS: BP 149/68
[2019-01-10 08:04] LABS: CALCIUM, SERUM 8.4 mg/dL (8.5-10.1); CHLORIDE 106 mmol/L (98-107); CREATININE 0.6 mg/dL (0.6-1.3); GLUCOSE 101 mg/dL (74-106); PHOSPHORUS 3.6 mg/dL (2.5-4.9); POTASSIUM 3.6 mmol/L (3.5-5.1); SODIUM SERUM 142 mmol/L (136-145); UREA NITROGEN, BLOOD 6 mg/dL (7-18)
[2019-01-10 08:23] LABS: CARBON DIOXIDE 26 mmol/L (21-32)
[2019-01-10] MEDS: LACTOBACILLUS RHAMNOSUS GG 1 EACH CAP.SPRINK PO SCH ×2 (08:29→17:56)
[2019-01-10] MEDS: ASPIRIN EC 81 MG TABLET.DR PO SCH (08:29)
[2019-01-10] MEDS: FAMOTIDINE/PF INJ 20 MG/2 ML VIAL IV SCH (08:29)
[2019-01-10] MEDS: ATENOLOL 50 MG TABLET PO SCH (08:30)
--- NOTE | 2019-01-10 08:30 | NUR ---
MS/RN NOTE THE PATIENT COMPLAINED OF RIGHT ARM PAIN 08/20. TYLENOL 650 MG PO IS GIVEN. WILL CONTINUE TO MONITOR.
--- NOTE | 2019-01-10 09:00 | NUR ---
MS/RN NOTE THE PATIENT VERBALIZED TYLENOL BEING EFFECTIVE AND RATED PAIN 0/10.
[2019-01-10] MEDS: VANCOMYCIN 1.25 GM in IV D5W 500 ML IV SCH (12:09)
[2019-01-10 16:00] VITALS: BP 119/61
[2019-01-10] MEDS: CEFTRIAXONE 1 G in IV D5W 50 ML IV SCH (17:56)
[2019-01-10] MEDS: Z GUARD REMEDY 2 OZ OINT TP SCH (17:57)
--- NOTE | 2019-01-10 18:28 | NUR ---
MS/RN CLOSING NOTE THE PATIENT IS ALERT AND ORIENTED X3. IN ROOM AIR AND SATURATION IS AT 97%. RESPIRATION REGULAR AND UNLABORED. DENIES PAIN. THE PATIENT IN NO APPARENT DISTRESS. LFA G 18 PATENT AND IV ANTIBIOTIC INFUSING PER ORDER AND NO S/S INFILTRATION NOTED. RIGHT ARM DRESSING INTACT. BED LOW AND LOCKED. SIDE RAILS UP X3. CALL LIGHT WITHIN REACH. WILL ENDORSE TO NIGHTS HFIT.
[2019-01-10] MEDS: IV NS 0.9% 1,000 ML IV PRN (19:21)
--- NOTE | 2019-01-10 19:38 | NUR ---
ms heidi initial notes received report from am nurse nicole while doing our rounds and seen pt in bed lying awake and watching tv at this time. denies any pain or any discomfort. IVF still infusing on his left forearm no redness noted. dressing on his right arm dry and intact. elevated on pillows. kept him warm and comfortable at all times. place call light at reach. side rails up and bed in low and lock in position. will continue monitoring.
[2019-01-10 20:00] VITALS: BP 131/70
[2019-01-10] MEDS: ATORVASTATIN 10 MG TABLET PO SCH (21:41)
[2019-01-10] MEDS: DONEPEZIL 5 MG TABLET PO SCH (21:41)
--- NOTE | 2019-01-10 21:43 | NUR ---
MS RADHA NOTES PT AWAKE AND JUST HAVE SPONGE BATH RENDERED WELL SKIN CARE TREATMENT DONE. ROUTINE MEDS GIVEN WELL HIS LOVENOX ADMINISTERED SYLVIA SQ ON HIS LEFT UPPER ABDOMEN WITNESS BY ANOTHER NURSE. KEPT HIM WARM AND COMFORTABLE AT ALL TIMES. PLACE CALL LIGHT AT REACH. WILL CONTINUE MONITORING.
[2019-01-11] MEDS: VANCOMYCIN 1.25 GM in IV D5W 500 ML IV SCH ×2 (00:04→12:27)
--- NOTE | 2019-01-11 00:20 | NUR ---
MS RADHA NOTES PT SLEEPING COMFORTABLY IN BED WITHOUT ANY DISTRESS NOTED. KEPT HIM WARM AND COMFORTABLE AT ALL TIMES. PLACE CALL LIGHT AT REACH. WILL CONTINUE MONITORING.
--- NOTE | 2019-01-11 03:00 | NUR ---
MS RADHA NOTES PT REMAIN ASLEEP NO SIGNS OF DISTRESS NOTED. WILL CONTINUE MONITORING. CALL LIGHT AT REACH.
[2019-01-11 06:38] LABS: BASOPHILS # (AUTO) 0.1 /CMM (0.0-0.2); BASOPHILS % (AUTO) 0.8 % (0.0-2.0); EOSINOPHILS % (AUTO) 2.5 % (0.0-6.0); HEMATOCRIT 37 % (39-51); HEMOGLOBIN 12.6 g/dL (13.5-17.5); LYMPHOCYTES # (AUTO) 1.8 /CMM (0.8-4.8); LYMPHOCYTES % (AUTO) 20.9 % (20.0-44.0); MEAN CORPUSCULAR HGB CONC 34 g/dl (31.0-36.0); MEAN CORPUSCULAR VOLUME 86 fL (80-96); MONOCYTES # (AUTO) 0.6 /CMM (0.1-1.30); MONOCYTES % (AUTO) 7.6 % (2.0-12.0); NEUTROPHILS # (AUTO) 5.7 /CMM (1.8-8.9); NEUTROPHILS % (AUTO) 68.2 % (43.0-81.0); PLATELET COUNT (AUTO) 194 /CMM (150-450); RED BLOOD CELL COUNT(AUTO) 4.27 MIL/uL (4.5-6.0); WHITE BLOOD COUNT (AUTO) 8.4 K/uL (4.3-11.0)
[2019-01-11 06:42] LABS: CALCIUM, SERUM 8.4 mg/dL (8.5-10.1); CARBON DIOXIDE 30 mmol/L (21-32); CHLORIDE 105 mmol/L (98-107); CREATININE 0.6 mg/dL (0.6-1.3); GLUCOSE 95 mg/dL (74-106); MAGNESIUM 1.8 mg/dL (1.8-2.4); PHOSPHORUS 3.5 mg/dL (2.5-4.9); POTASSIUM 3.6 mmol/L (3.5-5.1); SODIUM SERUM 142 mmol/L (136-145); UREA NITROGEN, BLOOD 5 mg/dL (7-18)
--- NOTE | 2019-01-11 07:15 | NUR ---
RN OPENING NOTE PATIENT RECEIVED IN BED. AWAKE, ALERT AND ORIENTED X3 AND SPEAKS BENGALI ONLY. RESPIRATION REGULAR AND UNLABORED. NO SOB. DENIED PAIN AND DISCOMFORT AT THIS TIME. NO APPARENT DISTRESS. RIGHT ARM DRESSING C/D/I. IV ACCESS INTACT AND PATENT, NO REDNESS. BED LOW AND LOCKED. SIDE RAILS UP X3. CALL LIGHT WITHIN REACH. WILL CONTINUE TO MONITOR ACCORDINGLY
--- NOTE | 2019-01-11 07:20 | NUR ---
MS MAINTENANCE CHIEF CLOSING NOTES PT AWAKE AND ALERT WATCHING TV AT THIS TIME. DENIES ANY PAIN OR ANY DISCOMFORT. IVF STILL INFUSING. SLEPT WELL AND STABLE SYLVIA THE NIGHT. ALL DUE MEDS GIVEN AND ALL NEEDS MET. KEPT HIM WARM AND COMFORTABLE AT ALL TIMES. ENDORSE TO AM NURSE FOR CONTINUITY OF CARE. BED ALARM SET FOR PT SAFETY. PLACE CALL LIGHT AT REACH.
[2019-01-11 08:00] VITALS: BP 140/70
[2019-01-11] MEDS: ATENOLOL 50 MG TABLET PO SCH (08:40)
[2019-01-11] MEDS: LACTOBACILLUS RHAMNOSUS GG 1 EACH CAP.SPRINK PO SCH ×2 (08:40→16:51)
[2019-01-11] MEDS: ASPIRIN EC 81 MG TABLET.DR PO SCH (08:40)
[2019-01-11] MEDS: FAMOTIDINE/PF INJ 20 MG/2 ML VIAL IV SCH (08:41)
[2019-01-11] MEDS: ENOXAPARIN SODIUM 80 MG/0.8 ML DISP.SYRIN SQ SCH ×2 (08:45→21:10)
[2019-01-11] MEDS: Z GUARD REMEDY 2 OZ OINT TP SCH (08:47)
[2019-01-11] MEDS: VITAMINS A AND D 56.7 GM TUBE TP PRN (08:49)
[2019-01-11 15:30] VITALS: BP 120/59
--- NOTE | 2019-01-11 15:43 | NUR ---
rn notes +MRSA wounds. informed discharge coordinator. will notify MD. Placed patient on isolation.
[2019-01-11] MEDS: IV NS 0.9% 1,000 ML IV PRN (16:45)
[2019-01-11] MEDS: CEFTRIAXONE 1 G in IV D5W 50 ML IV SCH (16:51)
--- NOTE | 2019-01-11 19:00 | NUR ---
ROBERT carranza opening notes Received Pt from morning nurse. Pt is alert and oriented X3. Pt speaks [place]inean and able to make needs known. Pt is laying in bed comfortably watching TV. Respiration is normal. No SOB. No nausea or vomiting. Pt denies any pain or discomfort at this time. IV sites at LFA # 18 is intact, patent and infuising well NS 75 ml/hr. Instructed to call. Contact precautions for MRSA is maintained. Safety precautions is maintained. Bed at low position, brakes on, side rails upX 2 and call light is within reach. Will continue to monitor.
--- NOTE | 2019-01-11 19:12 | NUR ---
RN CLOSING NOTES PATIENT IN STABLE CONDITION. ALL NEEDS ATTENDED AND PROVIDED. ALL DUE MEDICATIONS GIVEN ORDERED. ASSISTED WITH ADLS. REPOSITION EVERY 2 HRS NEEDED. WOUND CARE RENDERED. KEPT PATIENT SAFE AND COMFORTABLE. BED INLOW/LOCKED POSIITON. SIDERAILS UP X2, CALL LIGHT IN REACH. ENDORSED TO NIGHT RN FOR PRAVEEN.
[2019-01-11 20:00] VITALS: BP 121/66
[2019-01-11] MEDS: DONEPEZIL 5 MG TABLET PO SCH (21:10)
[2019-01-11] MEDS: ATORVASTATIN 10 MG TABLET PO SCH (21:11)
--- NOTE | 2019-01-11 22:00 | NUR ---
RN medsurg notes Pt's resting in bed comfortably. Awaken easily. No S/S of distress noted. Pt denies any pain or discomfort at this time. Will continue to monitor.
[2019-01-12] MEDS: VANCOMYCIN 1.25 GM in IV D5W 500 ML IV SCH ×2 (00:02→12:34)
--- NOTE | 2019-01-12 07:00 | NUR ---
RN medsurg closing notes Pt is resting in bed comfortably. Awaken easily. NO SOB. NO S/S of distress noted. Pt denies any pain or discomfort at this time. VS is stable. IV sites at LFA is intact, patent and infuising well NS @ 75ml/hr. Contact precautions for MRSA is maintained. Routine meds were given and skin care provided. Safety precautions is maintained. Bed at low position and call light is within reach. Instructed to call. Will endorse to morning nurse for PRAVEEN.
--- NOTE | 2019-01-12 07:00 | NUR ---
RN OPENING NOTE PATIENT RECEIVED IN BED. AWAKE, ALERT AND ORIENTED X3 AND SPEAKS SLOVENIAN ONLY. RESPIRATION REGULAR AND UNLABORED. NO SOB. DENIED PAIN AND DISCOMFORT AT THIS TIME. NO APPARENT DISTRESS. RIGHT ARM DRESSING C/D/I. IV ACCESS INTACT AND PATENT, NO REDNESS. BED LOW AND LOCKED. SIDE RAILS UP X3. CALL LIGHT WITHIN REACH. KEPT ON ISOLATION FOR MRSA WOUNDS. WILL CONTINUE TO MONITOR ACCORDINGLY
[2019-01-12 07:09] LABS: BASOPHILS # (AUTO) 0.1 /CMM (0.0-0.2); BASOPHILS % (AUTO) 1.3 % (0.0-2.0); EOSINOPHILS % (AUTO) 2.9 % (0.0-6.0); HEMATOCRIT 38 % (39-51); HEMOGLOBIN 13.2 g/dL (13.5-17.5); LYMPHOCYTES # (AUTO) 1.9 /CMM (0.8-4.8); LYMPHOCYTES % (AUTO) 23.3 % (20.0-44.0); MEAN CORPUSCULAR HGB CONC 34 g/dl (31.0-36.0); MEAN CORPUSCULAR VOLUME 86 fL (80-96); MONOCYTES # (AUTO) 0.7 /CMM (0.1-1.30); MONOCYTES % (AUTO) 8.3 % (2.0-12.0); NEUTROPHILS # (AUTO) 5.4 /CMM (1.8-8.9); NEUTROPHILS % (AUTO) 64.2 % (43.0-81.0); PLATELET COUNT (AUTO) 192 /CMM (150-450); RED BLOOD CELL COUNT(AUTO) 4.45 MIL/uL (4.5-6.0); WHITE BLOOD COUNT (AUTO) 8.3 K/uL (4.3-11.0)
[2019-01-12 07:49] LABS: CALCIUM, SERUM 8.2 mg/dL (8.5-10.1); CARBON DIOXIDE 29 mmol/L (21-32); CHLORIDE 105 mmol/L (98-107); CREATININE 0.6 mg/dL (0.6-1.3); GLUCOSE 100 mg/dL (74-106); MAGNESIUM 2.1 mg/dL (1.8-2.4); PHOSPHORUS 3.6 mg/dL (2.5-4.9); POTASSIUM 3.6 mmol/L (3.5-5.1); SODIUM SERUM 139 mmol/L (136-145); UREA NITROGEN, BLOOD 6 mg/dL (7-18)
[2019-01-12 08:00] VITALS: BP 143/79
[2019-01-12] MEDS: ASPIRIN EC 81 MG TABLET.DR PO SCH (08:22)
[2019-01-12] MEDS: LACTOBACILLUS RHAMNOSUS GG 1 EACH CAP.SPRINK PO SCH (08:22)
[2019-01-12] MEDS: ATENOLOL 50 MG TABLET PO SCH (08:24)
[2019-01-12] MEDS: FAMOTIDINE/PF INJ 20 MG/2 ML VIAL IV SCH (08:24)
[2019-01-12] MEDS: ENOXAPARIN SODIUM 80 MG/0.8 ML DISP.SYRIN SQ SCH (08:28)
[2019-01-12] MEDS: Z GUARD REMEDY 2 OZ OINT TP SCH (08:39)
[2019-01-12] MEDS: VITAMINS A AND D 56.7 GM TUBE TP PRN (08:40)
[2019-01-12] MEDS ORDERED: LACT1CAP72 PO (12:22)
[2019-01-12] MEDS ORDERED: SULF1TAB48 PO (12:22)
--- NOTE | 2019-01-12 15:00 | NUR ---
RN NOTES PATIENT IS CLEAR FOR DISCHARGE PER ANGIE TRAVIS (WOUND/PLASTICS).
[2019-01-12 16:00] VITALS: BP 130/65
[2019-01-12] MEDS: CEFTRIAXONE 1 G in IV D5W 50 ML IV SCH (16:50)
--- NOTE | 2019-01-12 17:58 | NUR ---
DISCHARGED PATIENT IN STABLE CONDITION PICKED UP BY PHARMACEUTICAL SCIENTIST. REPORT GIVEN TO ROBERT BURKETT AT [facility], DISCHARGE INSTRUCTIONS GIVEN. DC PAPERWORK HANDED TO PHARMACEUTICAL SCIENTIST. ALL BELONGINGS RETURNED. IV ACCES REMOVED, APPLIED PRESSURE, NO BLEEDING, NO COMPLICATIONS. REMOVED NAME BAND. PHOTOS TAKEN AND PLACED IT ON THE CHART.
== END 2019-01-12 17:59 | DRG 720 ==
LOC: ER 10:30 → TELE 12:37 → MED 01-08 09:24
PROVIDERS: ADMIT Registered Nurse; ATTEND Student in an Organized Health Care Education/Training Program
DX: A41.9 Sepsis, unspecified organism (principal); I69.351 Hemiplegia and hemiparesis following cerebral infarction affecting right dominant side; I82.621 Acute embolism and thrombosis of deep veins of right upper extremity; L03.113 Cellulitis of right upper limb; I10 Essential (primary) hypertension; M19.90 Unspecified osteoarthritis, unspecified site; I25.10 Atherosclerotic heart disease of native coronary artery without angina pectoris; R79.89 Other specified abnormal findings of blood chemistry; I99.8 Other disorder of circulatory system; D72.829 Elevated white blood cell count, unspecified; L60.3 Nail dystrophy; L85.3 Xerosis cutis; M20.42 Other hammer toe(s) (acquired), left foot; M20.41 Other hammer toe(s) (acquired), right foot; M21.612 Bunion of left foot; M21.611 Bunion of right foot
CPT/HCPCS: 36415; 71045-TC; 73090-TC; 80048-TC; 80053-TC; 80061-TC; 80076-TC; 80202-TC; 81000-TC; 83605-TC; 83735-TC; 84100-TC; 84443-TC; 84484-TC; 85025-TC; 85730-TC; 87040-TC; 87070-TC; 87081-TC; 87086-TC; 93971-TC; 97110-TC; 97112-TC; 97530-TC; A6402; A6403; G0378; J0696; J1650; J3370; J3490; J7030; J7060